=== PATIENT | male | born 1965 | race Caucasian/White ===

== ENCOUNTER 2024-12-24 09:38 | Emergency (ER) | payer OTHER, SELFPAY ==
--- OUTSIDE RECORDS SUMMARY | 2024-12-24 09:41 | XMS_ITS | Clinical Summary ---
Author Organization [facility] Address Formerly [facility] [facility] [address] [place] [address] Care Team Providers Care Methods Analyst Name Role Phone Unavailable Primary Care Provider Unavailabl e Social History Tobacco Use Types Packs/Day Years Used Date Smoking Tobacco: Never Assessed Sex and Gender Information Value Date Recorded Sex Assigned at Not on file Legal Sex Male 5:01 PM CDT Gender Identity Not on file Sexual Orientation Not on file Last Filed Vital Signs Vital Sign Reading Time Taken Comments Blood Pressure 122/70 11/19/2012 4:35 PM [employer]ENT Pulse - - Temperature - - Respiratory Rate - - Oxygen Saturation - - Inhaled Oxygen Concentration - - Weight 85.3 kg (188 lb) 11/19/2012 4:35 PM [employer] AGENT Height - - Body Mass Index - - Plan of Treatment Health Maintenance Due Date Last Done Comments Colorectal Cancer Screening Colonoscopy (10 Years) 1967 Annual Physical 1970 Hepatitis C 1985 DTaP, Tdap and Td Vaccines ( 1 - Tdap) 1986 Hepatitis B Vaccines (1 of 3 - 19+ 3-dose series) 1986 Zoster Vaccines (1 of 2) 2017 COVID-19 Vaccine (2023-2 5 season) 2024 Influenza Adult (#1) 2024 Meningococcal B Vaccine Aged Out No l onger eligible based on patient's age to complete this topic Meningococcal Vaccine Aged Out No lisa licha eligible based on patient's age to complete this topic Pneumococcal Vaccine: Pediat rics (0 to 5 Years) and At-Risk Patients (6 to 64 Years) Aged Out No longer eligible b ased on patient's age to complete this topic RSV Immunizations Under 20 Months Aged Out No longer eligible based on patient's age to complete this topic
[2024-12-24 10:21] VITALS: BP 147/77; PULSE 91; RESP 18; TEMP 37.2; O2SAT 100
--- NOTE | 2024-12-24 10:29 | ED.URI ---
HPI - URI/Sore Throat General Chief Complaint: Upper Respiratory Infection Stated Complaint: strep symptoms Time Seen by Provider: 12/24/24 10:29 Source: patient Mode of arrival: ambulatory Limitations: no limitations History of Present Illness HPI Narrative: 59-year-old male presents with complaint of sore throat, headache, fatigue, body aches for 2-3 days. Tactile fever. No nausea vomiting diarrhea. Noticed white spots to back of left side of throat. All systems reviewed and negative except as noted above. Related Data Allergies Allergy/AdvReac Type Severity Reaction Status Date / Time No Known Allergies Allergy Verified 12/24/24 10:23 Review of Systems Review of Systems: CONSTITUTIONAL: reports fever fatigue,, chills, or sweats. EYES: Denies visual changes, redness, or discharge. ENT: Denies rhinorrhea, congestion . Reports sore throat. Denies otalgia. CARDIOVASCULAR: Denies chest pain, palpitations, or edema. RESPIRATORY: Denies cough or dyspnea. GASTROINTESTINAL: Denies abdominal pain, nausea, vomiting, or diarrhea. GENITOURINARY: Denies dysuria or hematuria. SKIN: Denies rash or itching. MUSCULOSKELETAL: Denies back pain, joint pain. Reports myalgia. NEUROLOGIC: Denies headache, numbness, or weakness. PSYCHIATRIC: Denies anxiety or depression. All other systems reviewed are negative, except as documented in HPI. PMFSH Comments At time of signature, agree with nursing past medical, surgical, social and family history. There is no relevant family history pertinent to the presenting complaint. Exam Narrative: GENERAL: This is a well-nourished, well-developed patient, in no apparent distress. HEAD: normocephalic, atraumatic. EYES: PERRL. Sclera clear/white. Vision is grossly intact. EARS: External ears normal, auditory canals clear and without drainage, TMs normal without perforation. Hearing grossly intact. NOSE: External nose normal with no obvious nasal discharge, nares without redness, no rhinorrhea. THROAT: Mucous membranes moist, erythema to posterior pharynx, tonsils 1+ bilaterally, vesicles to left tonsil. NECK: Neck supple, non-tender without lymphadenopathy, masses or thyromegaly. CARDIOVASCULAR: Regular rate and rhythm without murmurs, gallops, or rubs. RESPIRATORY: Clear to auscultation. Breath sounds equal bilaterally. No wheezes, rales, or rhonchi. SKIN: warm, Dry, intact with no suspicious lesions or rash, good texture and turgor. NEURO: awake, alert, and oriented to person, place and time. There were no obvious focal neurologic abnormalities. EXTREMITIES: No joint tenderness, effusion, or edema noted. Course Course Level of Care: Express Care Visit Vital Signs Vital signs: Vital Signs Temperature 37.2 C 12/24/24 10:21 Pulse Rate 91 12/24/24 10:21 Respiratory Rate 18 12/24/24 10:21 Blood Pressure 147/77 H 12/24/24 10:21 Pulse Oximetry 100 12/24/24 10:21 Oxygen Delivery Room Air 12/24/24 10:21 Temperature 37.2 C 12/24/24 10:21 Pulse Rate 91 12/24/24 10:21 Respiratory Rate 18 12/24/24 10:21 Blood Pressure 147/77 H 12/24/24 10:21 Pulse Oximetry 100 12/24/24 10:21 Oxygen Delivery Room Air 12/24/24 10:21 Reviewed MDM - URI/Sore Throat MDM Narrative Medical decision making narrative: COVID, influenza and strep test negative. Strep culture ordered. Will treat patient with antibiotic due to symptoms and exam findings. Patient agrees with plan of care. Patient alert, nontoxic. Patient is aware of diagnosis, understands and agrees to treatment plan. Anticipatory guidance given. Patient agrees to follow-up as directed and is aware of reasons to seek care at the emergency department. Portions of this record may have been created with voice recognition software Differential Diagnosis Differential diagnosis: Likely upper respiratory infection, sinusitis, viral infection, influenza and pharyngitis Lab Data Labs: Lab Results 12/24/24 Range/Units 10:32 POC Grp A Strep Screen Negative (Negative) Discharge Plan Discharge Clinical Impression: Acute pharyngitis Qualifiers: Pharyngitis/tonsillitis etiology: streptococcus Qualified Code(s): J02.0 - Streptococcal pharyngitis Patient Disposition: Home, Self-Care Condition: Stable Instructions: Antibiotic Form, Pharyngitis (ED) Additional Instructions: your COVID, influenza and strep test was negative today. Due to her symptoms and exam findings I am prescribing an antibiotic today to treat for strep throat. Take antibiotic as prescribed until gone. Change toothbrush after taking antibiotic for 24 hours. Take ibuprofen or Tylenol every 6-8 hours as needed for pain and fever. Drink at least 64 oz of water a day. Follow-up with your primary care physician if symptoms are not improving. For any worsening of symptoms or difficulty swallowing go to the ER. Patient Language: Turkmen Prescriptions: New amoxicillin 500 mg capsule 500 mg PO Q12H 10 Days Qty: 20 0RF Follow-up/Referrals: PHYSICIAN,SUPERVISORY GEOGRAPHER [Primary Care Provider] - Time of Disposition: 10:39
[2024-12-24 10:36] LABS: EDSTREPNEGPOS1 Negative (Negative)
[2024-12-24 10:39] LABS: EDCOVIDSCREEN Negative (Negative); EDINFLUASCREEN Negative (Negative); EDINFLUBSCREEN Negative (Negative)
== END 2024-12-24 10:47 | disposition home or self-care (01) ==
PROVIDERS: Emergency Provider Nurse Practitioner Family; Referring Provider Emergency Medicine
DX: J02.0 Streptococcal pharyngitis (principal); Z20.822 Contact with and (suspected) exposure to COVID-19; Z86.16 Personal history of COVID-19
CPT/HCPCS: 87081; 87426; 87804; 87880; 99213; G0463